=== PATIENT | male | born 1945 | race Caucasian/White ===

== ENCOUNTER 2020-05-26 10:30 | Inpatient (IN) | payer MEDICARE ==
[2020-05-19 16:37] LABS: BASOPHILS # (AUTO) 0.1 X10'3 (0-0.2); BASOPHILS % (AUTO) 1.1 % (0-1); EOSINOPHILS # (AUTO) 0.8 X10'3 (0-0.9); EOSINOPHILS % (AUTO) 8.5 % (0-6); LYMPHOCYTES # (AUTO) 2.2 X10'3 (1.1-4.8); LYMPHOCYTES % (AUTO) 23.9 % (21-51); MEAN CORPUSCULAR HEMOGLOBIN 33.1 PG (27.0-31.0); MEAN CORPUSCULAR HGB CONC 34.2 g/dL (33.0-36.5); MEAN CORPUSCULAR VOLUME 96.8 FL (78-98); MEAN PLATELET VOLUME 7.2 FL (7.4-10.4); MONOCYTES # (AUTO) 1.2 X10'3 (0-0.9); MONOCYTES % (AUTO) 13.2 % (2-12); NEUTROPHILS % (AUTO) 53.3 % (42-75); PRE OP HEMATOCRIT 39.1 % (42.0-52.0); PRE OP HEMOGLOBIN 13.4 g/dL (14.0-17.9); PRE OP PLATELET COUNT 292 X10'3 (140-440); RED BLOOD COUNT 4.04 X10'6 (4.70-6.10); RED CELL DISTRIBUTION WIDTH 13.5 % (11.5-14.5)
[2020-05-19 16:52] LABS: ALBUMIN 3.9 G/DL (3.4-5.0); ALBUMIN/GLOBULIN RATIO 1.1 (1.1-1.5); ALKALINE PHOSPHATASE 72 IU/L (46-116); BLOOD UREA NITROGEN 21 MG/DL (7-18); BUN/CREATININE RATIO 15.9 (5.4-32.0); CALCIUM 9.2 MG/DL (8.5-10.1); CHLORIDE 102 MMOL/L (99-107); CREATININE 1.32 MG/DL (0.60-1.10); PRE OP ALT 37 U/L (30-65); PRE OP ANION GAP 11 (8-16); PRE OP AST 23 U/L (10-37); PRE OP BILIRUB, TOTAL 0.5 MG/DL (0.0-1.0); PRE OP GLUCOSE 94 MG/DL (70-104); PRE OP POTASSIUM 3.7 MMOL/L (3.4-5.1); PRE OP SODIUM 138 MMOL/L (135-145); TOTAL CARBON DIOXIDE 24.6 MMOL/L (24-32); TOTAL PROTEIN 7.6 G/DL (6.4-8.2); eGFR 53 ML/MIN
[2020-05-26] VITALS (17 sets, daily range): BP systolic 112–152; BP diastolic 47–86
[~2020-05-26] VITALS: Ht 175.3 cm; Wt 115.0 kg
[~2020-05-26 10:30] MED LIST: ASPI-612 PO; ATOR20TA66 PO; DOCUMENT DATE & TIME OF BETA-BLOCKER PO ONE; FAMO20TA8 PO; FLAX100031 PO; IBUP-1984 PO; METO100T14 PO; MULT-1141 PO; NORMAL SALINE IV ONE; OMEG1CAP46 PO; PSYL0.5244 PO; REVE175V INH; TRANEXAMIC ACID IV ONE; VALS1TAB81 PO; VITAMIN B12 PO; ceFAZolin 2gm in dextrose, iso 50 ML IV ONE; famotidine 20mg tablet PO ONE; ringers solution, lacted 1,000 ML IV SCH; vancomycin 1,500 MG in NS 300ml IV soln IV ONE
[2020-05-26] MEDS ORDERED: ROPIVAcaine 0.5% (5mg/ml) 30ml vial ONE (14:37)
[2020-05-26] MEDS ORDERED: ketorolac trometh. 30mg/ml inj. ONE (14:37)
[2020-05-26] MEDS ORDERED: ringers solution, lacted 1,000 ML IV SCH (15:00)
[2020-05-26] MEDS ORDERED: HYDROmorphone/PF 0.2 MG/ML SYRINGE IV PRN ×2 (15:00)
[2020-05-26] MEDS ORDERED: ondansetron/PF 4mg/2ml inj IV PRN ×2 (15:00→17:40)
[2020-05-26] MEDS ORDERED: ROPIVAcaine 0.2%/PF PUMP/bolus 550 ML ADDCANAL SCH (15:00)
[2020-05-26] MEDS ORDERED: ROPIVAcaine 0.2% (10 MG/5 ML) BOLUS INJECTION ADDCANAL PRN (15:00)
[2020-05-26] MEDS ORDERED: morphine 2 MG/ML inj. syringe IV PRN (15:00)
[2020-05-26] MEDS ORDERED: MIDAZolam 5mg/5ml vial ONE (15:03)
[2020-05-26] MEDS ORDERED: fentaNYL/PF 50MCG/1 ML 2ML syringe ONE ×3 (15:03→17:34)
[2020-05-26] MEDS ORDERED: diphenhydrAMINE 50 mg/ml inj ONE (16:28)
[2020-05-26] MEDS ORDERED: LIDOcaine 2% (20mg/ml) 5ml vial ONE (16:28)
[2020-05-26] MEDS ORDERED: propofol inj 20 ML IV ONE ×2 (16:28→17:14)
[2020-05-26] MEDS ORDERED: dexamethasone sod phosphate 4mg/ml inj. ONE (16:28)
[2020-05-26] MEDS ORDERED: diphenhydrAMINE 25mg capsule PO PRN ×2 (17:40)
[2020-05-26] MEDS ORDERED: HYDROmorphone inj. 0.5 MG/0.5 ML DISP.SYRIN IV PRN (17:40)
[2020-05-26] MEDS ORDERED: oxyCODONE IR 5mg (immed. release) tablet PO PRN (17:40)
[2020-05-26] MEDS ORDERED: bisacodyl 10mg suppository rectal RC PRN (17:40)
[2020-05-26] MEDS ORDERED: HYDROmorphone 1 mg/ml syringe IV PRN (17:40)
[2020-05-26] MEDS ORDERED: acetaminophen 325mg tablet PO PRN (17:40)
[2020-05-26] MEDS ORDERED: magnesium hydroxide 30ml (MOM) UD suspension PO PRN (17:40)
--- NOTE | 2020-05-26 17:47 | NUR ---
Received from OR via , accompanied by Anesthesiologist DR MARCANO and report given by Anesthesiolgist. AWAKE AND OREN PAIN. VITALS STABLE. SENSATION JUST ABOVE THE KNEES. SANDHU WITH CLEAR URINE.
--- NOTE | 2020-05-26 18:56 | NUR ---
Patient in PACU . I have received report from Landen SANDERS and had the opportunity to ask questions and assume patient care.
--- NOTE | 2020-05-26 18:57 | NUR ---
Report called to receiving nurse. Transferred via BED Belongings . Special Issues communicated to receiving nurse. AWAKE AND ORIENTED. VITALS STABLE. DRESSING DI. OREN PAIN. TO ORTHO RM 4015O AT THIS TIME.
--- NOTE | 2020-05-26 19:10 | NUR ---
Pt to floor 4014-B, VS Q15, A/Ox4
[2020-05-26] MEDS: acetaminophen 325mg tablet PO SCH (20:00)
[2020-05-26] MEDS ORDERED: vancomycin/NS 1 GM ADD-VANTAGE 250 ML IV SCH (20:00)
[2020-05-26] MEDS ORDERED: tranexamic acid inj. 1,150 MG in normal saline 100ml IV soln 100 ML IV ONE (20:30)
[2020-05-26] MEDS ORDERED: non-formulary drug (Flaxseed Oil (Flax Seed Oil) 1,000 MG) PO SCH (21:00)
[2020-05-26] MEDS: sennosides 8.6mg tablet PO SCH (21:00)
[2020-05-26] MEDS: metoprolol tartrate 50mg tablet PO SCH (21:02)
[2020-05-26] MEDS: potassium cl 20mEq in 1/2 NS 1,000 ML IV SCH (22:59)
[2020-05-27] MEDS: ceFAZolin 1GM/D5W- ADD-VANTAGE 50 ML IV SCH ×2 (00:48→07:58)
[2020-05-27] MEDS: oxyCODONE IR 5mg (immed. release) tablet PO PRN ×5 (00:56→20:30)
[2020-05-27] MEDS: acetaminophen 325mg tablet PO SCH ×4 (00:56→20:31)
[2020-05-27] MEDS: potassium cl 20mEq in 1/2 NS 1,000 ML IV SCH ×3 (01:40→17:40)
[2020-05-27 02:00] VITALS: BP 103/45
[2020-05-27 06:00] VITALS: BP 127/67
[2020-05-27 06:24] LABS: ANION GAP 8 (8-16); CHLORIDE 104 MMOL/L (99-107); POTASSIUM 3.8 MMOL/L (3.5-5.1); SODIUM 137 MMOL/L (135-145); TOTAL CARBON DIOXIDE 24.6 MMOL/L (24-32)
[2020-05-27 06:33] LABS: HEMOGLOBIN 11.5 g/dl (14.0-17.9); RED BLOOD COUNT 3.44 X10'6 (4.70-6.10)
--- NOTE | 2020-05-27 06:33 | NUR ---
Problems reprioritized. Patient report given, questions answered & plan of care reviewed with Siddhartha SANDERS.
[2020-05-27 06:36] LABS: BASOPHILS % (AUTO) 0.1 % (0-1); EOSINOPHILS % (AUTO) 0.1 % (0-6); HEMATOCRIT 33.6 % (42.0-52.0); LYMPHOCYTES # (AUTO) 0.9 X10'3 (1.1-4.8); LYMPHOCYTES % (AUTO) 7.8 % (21-51); MEAN CORPUSCULAR HEMOGLOBIN 33.5 PG (27.0-31.0); MEAN CORPUSCULAR HGB CONC 34.3 g/dL (33.0-36.5); MEAN CORPUSCULAR VOLUME 97.6 FL (78-98); MEAN PLATELET VOLUME 7.1 FL (7.4-10.4); MONOCYTES # (AUTO) 0.9 X10'3 (0-0.9); MONOCYTES % (AUTO) 8.2 % (2-12); NEUTROPHILS # (AUTO) 9.2 X10'3 (1.8-7.7); NEUTROPHILS % (AUTO) 83.8 % (42-75); PLATELET COUNT 223 X10'3 (140-440); RED CELL DISTRIBUTION WIDTH 13.4 % (11.5-14.5)
--- NOTE | 2020-05-27 06:43 | NUR ---
Patient in room ORTHO 4014. I have received report from Zulema and had the opportunity to ask questions and assume patient care.
[2020-05-27] MEDS: losartan 50mg tablet PO SCH (07:53)
[2020-05-27] MEDS: HYDROchlorothiazide 25mg tablet PO SCH (07:54)
[2020-05-27] MEDS: atorvastatin 20mg tablet PO SCH (07:56)
[2020-05-27] MEDS: aspirin 325mg tablet PO SCH (07:57)
[2020-05-27] MEDS: famotidine 20mg tablet PO SCH (07:57)
[2020-05-27] MEDS: metoprolol tartrate 50mg tablet PO SCH ×2 (07:57→20:30)
[2020-05-27 10:07] VITALS: BP 126/68
[2020-05-27 14:00] VITALS: BP 106/46
--- NOTE | 2020-05-27 15:28 | NUR ---
Pt s/p left TKA, currently on a regular diet eating well with documented 75-100% PO intake. Will continue to follow and monitor need for nutrition intervention. Addendum: 05/27/20 at [address] Amended: Links added.
[2020-05-27 18:00] VITALS: BP 109/63
--- NOTE | 2020-05-27 18:11 | NUR ---
Problems reprioritized. Patient report given, questions answered & plan of care reviewed with Rhonda.
--- NOTE | 2020-05-27 18:15 | NUR ---
Report received from Siddhartha SANDERS, assumed care of patient.
[2020-05-27] MEDS: sennosides 8.6mg tablet PO SCH (20:30)
[2020-05-27 22:00] VITALS: BP 115/56
[2020-05-28] MEDS: oxyCODONE IR 5mg (immed. release) tablet PO PRN ×2 (00:30→05:20)
[2020-05-28] MEDS: acetaminophen 325mg tablet PO SCH ×2 (02:00→07:47)
[2020-05-28 05:57] LABS: BASOPHILS % (AUTO) 0.2 % (0-1); EOSINOPHILS # (AUTO) 0.2 X10'3 (0-0.9); EOSINOPHILS % (AUTO) 1.6 % (0-6); HEMATOCRIT 32.9 % (42.0-52.0); HEMOGLOBIN 11.3 g/dl (14.0-17.9); LYMPHOCYTES # (AUTO) 1.1 X10'3 (1.1-4.8); LYMPHOCYTES % (AUTO) 9.2 % (21-51); MEAN CORPUSCULAR HEMOGLOBIN 33.5 PG (27.0-31.0); MEAN CORPUSCULAR HGB CONC 34.3 g/dL (33.0-36.5); MEAN CORPUSCULAR VOLUME 97.5 FL (78-98); MONOCYTES # (AUTO) 1.4 X10'3 (0-0.9); MONOCYTES % (AUTO) 11.8 % (2-12); NEUTROPHILS # (AUTO) 8.9 X10'3 (1.8-7.7); NEUTROPHILS % (AUTO) 77.2 % (42-75); PLATELET COUNT 214 X10'3 (140-440); RED BLOOD COUNT 3.37 X10'6 (4.70-6.10); RED CELL DISTRIBUTION WIDTH 13.6 % (11.5-14.5); WHITE BLOOD COUNT 11.5 X10'3 (4.5-11.0)
[2020-05-28 06:00] VITALS: BP 107/59
--- NOTE | 2020-05-28 06:10 | NUR ---
Report given to Siddhartha SANDERS.
--- NOTE | 2020-05-28 06:27 | NUR ---
Patient in room ORTHO 4007. I have received report from Michelle and had the opportunity to ask questions and assume patient care.
[2020-05-28] MEDS: losartan 50mg tablet PO SCH (07:43)
[2020-05-28] MEDS: HYDROchlorothiazide 25mg tablet PO SCH (07:44)
[2020-05-28] MEDS: aspirin 325mg tablet PO SCH (07:47)
[2020-05-28] MEDS: famotidine 20mg tablet PO SCH (07:48)
[2020-05-28] MEDS: atorvastatin 20mg tablet PO SCH (07:49)
[2020-05-28] MEDS: metoprolol tartrate 50mg tablet PO SCH (07:49)
[2020-05-28 10:09] VITALS: BP 113/56
--- NOTE | 2020-05-28 14:00 | NUR ---
Safe DC. All personal items with patient.
[2020-05-28] MEDS ORDERED: acetaminophen 325mg tablet PO PRN (17:40)
== END 2020-05-28 14:14 | disposition home or self-care (01) | DRG 470 ==
LOC: PAS 10:30 → EDSTATUS 16:30 → ORTHO 4S 17:40
PROVIDERS: ADMIT Orthopaedic Surgery; ATTEND Orthopaedic Surgery
PROC: 8E0YXBZ Computer Assisted Procedure of Lower Extremity (ICD-10-PCS; 2020-05-26)
PROC: 8E0Y0CZ Robotic Assisted Procedure of Lower Extremity, Open Approach (ICD-10-PCS; 2020-05-26)
PROC: 5A09357 Assistance with Respiratory Ventilation, Less than 24 Consecutive Hours, Continuous Positive Airway Pressure (ICD-10-PCS; 2020-05-26)
PROC: 0SRD0J9 Replacement of Left Knee Joint with Synthetic Substitute, Cemented, Open Approach (ICD-10-PCS; principal; 2020-05-26 15:10)
PROC: 5A09357 Assistance with Respiratory Ventilation, Less than 24 Consecutive Hours, Continuous Positive Airway Pressure (ICD-10-PCS; 2020-05-28)
DX: M17.12 Unilateral primary osteoarthritis, left knee (principal); D62 Acute posthemorrhagic anemia; M21.062 Valgus deformity, not elsewhere classified, left knee; I10 Essential (primary) hypertension; E78.5 Hyperlipidemia, unspecified
CPT/HCPCS: 36415; 80051; 80053; 82948; 85025; 87081; 87635; 97161; 97530; A4215; A6454; A7000; C1713; C1758; C1776; G0378; J0690; J1100; J1170; J1200; J1885; J2001; J2250; J2405; J2704; J2795; J3010; J3370; J3480; J7040; J7120

== ENCOUNTER 2023-12-20 14:33 | Emergency (ER) | payer MEDICARE ==
[~2023-12-20] VITALS: Ht 180.3 cm; Wt 122.7 kg
[~2023-12-20 14:33] MED LIST changes: -DOCUMENT DATE & TIME OF BETA-BLOCKER PO ONE; +METAMUCIL0.52 GM PO; -NORMAL SALINE IV ONE; -OMEG1CAP46 PO; -PSYL0.5244 PO; -TRANEXAMIC ACID IV ONE; +[UNRECOGNIZED DRUG - OTHER] PO; -ceFAZolin 2gm in dextrose, iso 50 ML IV ONE; -famotidine 20mg tablet PO ONE; -ringers solution, lacted 1,000 ML IV SCH; -vancomycin 1,500 MG in NS 300ml IV soln IV ONE
[2023-12-20] MEDS: methylPREDNISolone sod succ 125mg/2ml vial IV ONE (15:36)
[2023-12-20 15:51] VITALS: PULSE 63; RESP 22; O2SAT 94
[2023-12-20] MEDS: ipratropium/albuterol 3ml nebule NEB ONE (15:51)
[2023-12-20 15:53] LABS: BASOPHILS # (AUTO) 0.1 X10'3 (0-0.2); BASOPHILS % (AUTO) 0.7 % (0-1); EOSINOPHILS # (AUTO) 0.4 X10'3 (0-0.9); HEMATOCRIT 40.4 % (42.0-52.0); HEMOGLOBIN 13.7 g/dl (14.0-17.9); LYMPHOCYTES # (AUTO) 1.6 X10'3 (1.1-4.8); LYMPHOCYTES % (AUTO) 15.5 % (21-51); MEAN CORPUSCULAR HEMOGLOBIN 33.1 PG (27.0-31.0); MEAN CORPUSCULAR HGB CONC 33.9 g/dL (33.0-36.5); MEAN CORPUSCULAR VOLUME 97.8 FL (78-98); MEAN PLATELET VOLUME 6.9 FL (7.4-10.4); MONOCYTES # (AUTO) 0.9 X10'3 (0-0.9); MONOCYTES % (AUTO) 8.7 % (2-12); NEUTROPHILS # (AUTO) 7.1 X10'3 (1.8-7.7); NEUTROPHILS % (AUTO) 71.1 % (42-75); PLATELET COUNT 327 X10'3 (140-440); RED BLOOD COUNT 4.13 X10'6 (4.70-6.10); RED CELL DISTRIBUTION WIDTH 13.6 % (11.5-14.5)
[2023-12-20 16:01] VITALS: PULSE 64; RESP 20; O2SAT 94
[2023-12-20 16:07] LABS: ALANINE AMINOTRANSFERASE 41 U/L (12-78); ALBUMIN 3.6 G/DL (3.4-5.0); ALBUMIN/GLOBULIN RATIO 0.8 (1.1-1.5); ALKALINE PHOSPHATASE 61 IU/L (46-116); ANION GAP 8 (8-16); ASPARTATE AMINO TRANSFERASE 30 U/L (10-37); BILIRUBIN,TOTAL 0.7 MG/DL (0.1-1.0); BLOOD UREA NITROGEN 17 MG/DL (7-18); BUN/CREATININE RATIO 12.9 (10.0-20.0); CALCIUM 9.6 MG/DL (8.5-10.1); CHLORIDE 100 MMOL/L (99-107); CREATININE 1.32 MG/DL (0.60-1.10); GLUCOSE 99 MG/DL (70-104); POTASSIUM 3.6 MMOL/L (3.5-5.1); SODIUM 135 MMOL/L (135-145); TOTAL CARBON DIOXIDE 26.7 MMOL/L (24-32); TOTAL PROTEIN 8.1 G/DL (6.4-8.2); eCRCL 48 ML/MIN; eGFR 52 ML/MIN
[2023-12-20 16:16] LABS: BILIRUBIN,DIRECT 0.2 MG/DL (0-0.3); PRO BRAIN NATRIURETIC PEPTIDE 133 PG/ML (0-450)
[2023-12-20] MEDS ORDERED: ALBU18HF2 INH (16:28)
[2023-12-20] MEDS ORDERED: PRED50TA PO (16:28)
[2023-12-20] MEDS ORDERED: AZIT250T83 PO (16:28)
[2023-12-20 16:46] VITALS: BP 150/68; PULSE 65; RESP 15; O2SAT 93
== END 2023-12-20 17:17 | disposition home or self-care (01) ==
LOC: ER 14:34
DX: J44.1 Chronic obstructive pulmonary disease with (acute) exacerbation (principal); I10 Essential (primary) hypertension; Z79.82 Long term (current) use of aspirin; Z79.899 Other long term (current) drug therapy; Z79.1 Long term (current) use of non-steroidal anti-inflammatories (NSAID)
CPT/HCPCS: 36415; 71045; 80048; 80076; 83880; 84484; 85025; 93005; 94640; 96374; 99285; J2919; 94760

== ENCOUNTER 2024-06-01 06:02 | Day surgery (SDC) | payer MEDICARE ==
[2024-05-27 11:49] LABS: BASOPHILS # (AUTO) 0.1 X10'3 (0-0.2); BASOPHILS % (AUTO) 0.8 % (0-1); EOSINOPHILS # (AUTO) 0.7 X10'3 (0-0.9); EOSINOPHILS % (AUTO) 6.4 % (0-6); LYMPHOCYTES # (AUTO) 1.9 X10'3 (1.1-4.8); LYMPHOCYTES % (AUTO) 17.8 % (21-51); MEAN CORPUSCULAR HEMOGLOBIN 34.4 PG (27.0-31.0); MEAN CORPUSCULAR HGB CONC 34.7 g/dL (33.0-36.5); MEAN CORPUSCULAR VOLUME 99.1 FL (78-98); MEAN PLATELET VOLUME 7.1 FL (7.4-10.4); MONOCYTES # (AUTO) 1.4 X10'3 (0-0.9); MONOCYTES % (AUTO) 13.1 % (2-12); NEUTROPHILS # (AUTO) 6.7 X10'3 (1.8-7.7); NEUTROPHILS % (AUTO) 61.9 % (42-75); PRE OP HEMATOCRIT 40.8 % (42.0-52.0); PRE OP HEMOGLOBIN 14.2 g/dL (14.0-17.9); PRE OP PLATELET COUNT 334 X10'3 (140-440); PRE OP WHITE BLOOD COUNT 10.9 10'3 (4.8-10.8); RED BLOOD COUNT 4.12 X10'6 (4.70-6.10); RED CELL DISTRIBUTION WIDTH 13.7 % (11.5-14.5)
[2024-05-27 11:56] LABS: ALBUMIN 3.8 G/DL (3.4-5.0); ALBUMIN/GLOBULIN RATIO 0.9 (1.1-1.5); ALKALINE PHOSPHATASE 76 IU/L (46-116); BLOOD UREA NITROGEN 21 MG/DL (7-18); BUN/CREATININE RATIO 13.9 (10.0-20.0); CALCIUM 9.7 MG/DL (8.5-10.1); CHLORIDE 104 MMOL/L (99-107); CREATININE 1.51 MG/DL (0.60-1.10); PRE OP ALT 41 U/L (30-65); PRE OP ANION GAP 11 (8-16); PRE OP AST 26 U/L (10-37); PRE OP BILIRUB, TOTAL 0.6 MG/DL (0.0-1.0); PRE OP GLUCOSE 95 MG/DL (70-104); PRE OP POTASSIUM 3.8 MMOL/L (3.4-5.1); PRE OP SODIUM 141 MMOL/L (135-145); TOTAL CARBON DIOXIDE 26.4 MMOL/L (24-32); eGFR 45 ML/MIN
[~2024-06-01] VITALS: Ht 180.3 cm; Wt 122.0 kg
[2024-06-01] VITALS (9 sets, daily range): BP systolic 101–137; BP diastolic 57–81; PULSE 59–75; RESP 15–19; TEMP 98.3; O2SAT 91–96
[2024-06-01] MEDS: famotidine 20mg tablet PO ONE (05:30)
[2024-06-01] MEDS: DOCUMENT DATE & TIME OF BETA-BLOCKER PO ONE (05:30)
[2024-06-01] MEDS: ceFAZolin 2gm in dextrose, iso 50 ML IV ONE (05:30)
[~2024-06-01 06:02] MED LIST changes: +ALBU8HFA INH; +ARFO15VI20 INH; +ATOR10TA70 PO; -ATOR20TA66 PO; +BUDE0.5A3 NEB; -IBUP-1984 PO; +IRON; +LATA2.5D14 EACHEYE; +LUTEIN; +VIT B6; -VITAMIN B12 PO; +albuterol 2.5 MG/3 ML nebule NEB ONE
[2024-06-01] MEDS: ringers solution, lacted 1,000 ML IV SCH (06:44)
[2024-06-01] MEDS ORDERED: LIDOcaine 2% (20mg/ml) 5ml vial ONE (06:47)
[2024-06-01] MEDS ORDERED: BUPIVAcaine/PF 2.5mg/ml (0.25%) 10ml vial ONE (06:47)
[2024-06-01] MEDS ORDERED: fentaNYL/PF 50MCG/1 ML 2ML syringe ONE (08:02)
[2024-06-01] MEDS ORDERED: midazolam 1 mg/ML 2ml injection ONE (08:03)
[2024-06-01] MEDS ORDERED: propofol inj 20 ML IV ONE (08:11)
== END 2024-06-01 09:38 | disposition home or self-care (01) ==
LOC: PAS 06:02
PROVIDERS: ATTEND Orthopaedic Surgery Hand Surgery
DX: G56.02 Carpal tunnel syndrome, left upper limb (principal); I10 Essential (primary) hypertension; E11.39 Type 2 diabetes mellitus with other diabetic ophthalmic complication; H40.9 Unspecified glaucoma; E78.00 Pure hypercholesterolemia, unspecified; J44.9 Chronic obstructive pulmonary disease, unspecified; K21.9 Gastro-esophageal reflux disease without esophagitis; G47.33 Obstructive sleep apnea (adult) (pediatric); I25.2 Old myocardial infarction; M19.90 Unspecified osteoarthritis, unspecified site; Z87.891 Personal history of nicotine dependence; Z86.73 Personal history of transient ischemic attack (TIA), and cerebral infarction without residual deficits; Z79.891 Long term (current) use of opiate analgesic; Z79.899 Other long term (current) drug therapy; Z96.653 Presence of artificial knee joint, bilateral
CPT/HCPCS: 36415; 64721; 80053; 82948; 85025; 93005; J0690; J2003; J2250; J2704; J3010; J3490; J7030; J7120; Z7506; Z7512; A4215; A6449